=== PATIENT | female | born 1985 | race Caucasian/White ===

== ENCOUNTER → 2024-02-02 | Outpatient (CLI) | payer SELFPAY ==
[2024-02-02 08:05] LABS: Bedside Glucose 96 mg/dL (74-106)
[2024-02-02 08:56] LABS: Glucose 75GTT - 30 minutes 162 mg/dL (100-160)
[2024-02-02 08:56] LABS: Glucose 75GTT - Fasting 97 mg/dL (70-99)
[2024-02-02 08:58] LABS: Cholesterol 252 mg/dL (200); High Density Lipoprotein 77 mg/dL; Triglycerides 50 mg/dL; Very Low Density Lipoprotein 10 mg/dL (5-40)
[2024-02-02 09:18] LABS: Glucose 75GTT - 60 minutes 144 mg/dL (100-160)
[2024-02-02 09:45] LABS: Glucose 75GTT - 120 minutes 136 mg/dL (70-140)
[2024-02-03 04:07] LABS: PROLACTIN 22.8 ng/mL (4.8-33.4)
[2024-02-03 04:07] LABS: PROLACTIN 45.8 ng/mL (4.8-33.4)
[2024-02-07 09:22] LABS: INSULIN 120 MIN 36.1 uIU/mL (0.0-145.4); INSULIN 30 MIN 19.8 uIU/mL (0.0-121.9); INSULIN 60 MIN 28.7 uIU/mL (0.0-163.5); INSULIN FASTING 3.6 uIU/mL (2.6-24.9)
== END | disposition home or self-care (01) ==
LOC: LAB 06:53
PROVIDERS: PCP Student in an Organized Health Care Education/Training Program; Referring Provider Obstetrics & Gynecology; Visit Provider Obstetrics & Gynecology
DX: E28.9 Ovarian dysfunction, unspecified (principal); Z13.1 Encounter for screening for diabetes mellitus; Z13.29 Encounter for screening for other suspected endocrine disorder
CPT/HCPCS: 80061; 82533; 82951; 82952; 82962; 83525; 84146